=== PATIENT | male | born 1985 | race Caucasian/White ===

== ENCOUNTER 2017-03-24 05:54 | Day surgery (SDC) | payer OTHER ==
[2017-03-23 14:50] VITALS: BMI 23.7
--- NOTE | 2017-03-24 07:09 | HP ---
Admitting History and Physical - Admission Chief Complaint: depression History of Present Illness: patient is a 32 y/o male with a past medical history of depression. Patient presents for ECT, this will be his first ECT. Patient reports a history of depression for the past 16 years. Patient reports compliance with prescribed medications. However, he reports no improvement of depressive symptoms with prescribed medications. As a result, patient was recommended for ect. He does reports suicidal ideation, however, he denies any suicide plan. Patient denies any homicidal ideation, visual or auditory hallucination. Patient does report his last hospitalization for depression was [facility] at 16 years of age. History Source: Patient - Smoking History Smoking history: Never smoked Have you smoked in the past 12 months: No - Alcohol/Substance Use Hx Alcohol Use: Yes (RARELY) History of Substance Use: reports: Marijuana - Social History Usual Living Arrangement: Yes: With Parent ADL: Independent Occupation: land scaping History of Recent Travel: No Home Medications - Allergies Allergies/Adverse Reactions: Allergies Allergy/AdvReac Type Severity Reaction Status Date / Time No Known Drug Allergies Allergy Verified 03/23/17 14:26 - Home Medications Home Medications: Ambulatory Orders Brexpiprazole [Rexulti] 0.5 mg PO Q2D 03/23/17 Clonazepam [Klonopin] 1 mg PO HS 03/23/17 Escitalopram Oxalate [Lexapro -] 20 mg PO HS 03/23/17 Family Disease History - Family Disease History Family Disease History: Other: Father (depression), Mother (anxiety), Brother ( neuroblastoma ), Sister (depression and anxiety three sisters ) Review of Systems - Review of Systems Constitutional: reports: No Symptoms Eyes: reports: No Symptoms HENT: reports: No Symptoms Neck: reports: No Symptoms Cardiovascular: reports: No Symptoms Respiratory: reports: No Symptoms Gastrointestinal: reports: No Symptoms Genitourinary: reports: No Symptoms Musculoskeletal: reports: No Symptoms Integumentary: reports: No Symptoms Neurological: reports: No Symptoms Endocrine: reports: No Symptoms Hematology/Lymphatic: reports: No Symptoms Psychiatric: reports: Depression Physical Examination Vital Signs: Vital Signs Temperature 98.0 F 03/24/17 06:58 Pulse Rate 60 03/24/17 06:58 Respiratory Rate 18 03/24/17 06:58 Blood Pressure 116/64 03/24/17 06:58 O2 Sat by Pulse Oximetry (%) 100 03/24/17 06:58 Constitutional: Yes: Well Nourished, No Distress, Calm Eyes: Yes: WNL, Conjunctiva Clear, EOM Intact HENT: Yes: WNL, Atraumatic, Normocephalic Neck: Yes: WNL, Supple, Trachea Midline Cardiovascular: Yes: WNL, Regular Rate and Rhythm, S1, S2 Respiratory: Yes: WNL, Regular, CTA Bilaterally Gastrointestinal: Yes: WNL, Normal Bowel Sounds, Soft ...Rectal Exam: Yes: Deferred Renal/: Yes: WNL Musculoskeletal: Yes: WNL Extremities: Yes: WNL Edema: No Peripheral Pulses WNL: Yes Peripheral Pulses: Left Radial: 4+, Right Radial: 4+, Left Doralis Pedis: 3+, Right Dorsalis Pedis: 3+, Left Femoral: 3+, Right Femoral: 3+ Integumentary: Yes: WNL Neurological: Yes: WNL, Alert, Oriented ...Motor Strength: WNL Psychiatric: Yes: WNL, Alert, Oriented Labs: CBC WBC 5.7 K/mm3 (4.0-10.0) 03/24/17 06:20 RBC 4.68 M/mm3 (4.00-5.60) 03/24/17 06:20 Hgb 14.4 GM/dL (11.7-16.9) 03/24/17 06:20 Hct 42.4 % (35.4-49) 03/24/17 06:20 MCV 90.7 fl (80-96) 03/24/17 06:20 MCHC 33.9 g/dl (32.0-35.9) 03/24/17 06:20 RDW 13.0 % (11.9-15.9) 03/24/17 06:20 Plt Count 176 K/MM3 (134-434) 03/24/17 06:20 MPV 9.8 fl (7.5-11.1) 03/24/17 06:20 Neutrophils % 51.5 % (42.8-82.8) 03/24/17 06:20 Lymphocytes % 35.4 % (8-40) 03/24/17 06:20 Monocytes % 7.8 % (3.8-10.2) 03/24/17 06:20 Eosinophils % 4.7 % (0-4.5) H 03/24/17 06:20 Basophils % 0.6 % (0-2.0) 03/24/17 06:20 CMP Sodium 142 mmol/L (136-145) 03/24/17 06:20 Potassium 4.1 mmol/L (3.5-5.1) 03/24/17 06:20 Chloride 105 mmol/L (98-107) 03/24/17 06:20 Carbon Dioxide 30 mmol/L (21-32) 03/24/17 06:20 Anion Gap 7 (8-16) L 03/24/17 06:20 BUN 22 mg/dL (7-18) H 03/24/17 06:20 Creatinine 1.0 mg/dL (0.7-1.3) 03/24/17 06:20 Creat Clearance w eGFR > 60 (>60) 03/24/17 06:20 Random Glucose 89 mg/dL (74-106) 03/24/17 06:20 Calcium 8.9 mg/dL (8.5-10.1) 03/24/17 06:20 Total Bilirubin 0.5 mg/dL (0.2-1.0) 03/24/17 06:20 AST 22 U/L (15-37) 03/24/17 06:20 ALT 29 U/L (12-78) 03/24/17 06:20 Alkaline Phosphatase 119 U/L (45-117) H 03/24/17 06:20 Total Protein 7.1 g/dl (6.4-8.2) 03/24/17 06:20 Albumin 4.1 g/dl (3.4-5.0) 03/24/17 06:20 Imaging - Results EKG: Image Reviewed (sinsu bradycardia), Other Assessment/Plan patient is a 32 y/o male with a past medical history of depression that presents for ect labs and ekg reviewed informed consent, risks/benefits to be obtained by Dr Sams
[2017-03-24 07:18] LABS: MCH 30.7 pg (25.7-33.7); MCHC 33.9 g/dl (32.0-35.9); MEAN CELL VOLUME 90.7 fl (80-96); WHITE BLOOD COUNT 5.7 K/mm3 (4.0-10.0)
[2017-03-24 07:19] LABS: BASOPHIL 0.6 % (0-2.0); EOSINOPHIL 4.7 % (0-4.5); MEAN PLT VOLUME 9.8 fl (7.5-11.1); NEUTROPHILS 51.5 % (42.8-82.8); PLATELET COUNT 176 K/MM3 (134-434)
[2017-03-24 07:50] LABS: ALBUMIN 4.1 g/dl (3.4-5.0); ALK PHOS 119 U/L (45-117); ANION GAP 7 (8-16); BILIRUBIN,TOTAL 0.5 mg/dL (0.2-1.0); CALCIUM 8.9 mg/dL (8.5-10.1); CO2 30 mmol/L (21-32); COCKROFT - GAULT 105.1; GLUCOSE,RANDOM 89 mg/dL (74-106); SGOT/AST 22 U/L (15-37); SGPT/ALT 29 U/L (12-78); TOT PROT 7.1 g/dl (6.4-8.2)
[2017-03-24] MEDS ORDERED: KETAMINE HCL 500 MG/10 ML VIAL ONE (08:21)
[2017-03-24 09:07] VITALS: TEMP 98.2
[2017-03-24 09:41] VITALS: BP 133/72; PULSE 80
--- NOTE | 2017-03-24 16:53 | EKG ---
Test Reason : Blood Pressure : / mmHG Vent. Rate : 057 BPM Atrial Rate : 057 BPM P-R Int : 156 ms QRS Dur : 092 ms QT Int : 430 ms P-R-T Axes : 075 063 040 degrees QTc Int : 418 ms SINUS BRADYCARDIA POSSIBLE LEFT ATRIAL ENLARGEMENT BORDERLINE ECG NO PREVIOUS ECGS AVAILABLE Confirmed by KETAN MEDRANO MD ([id number] on 03/24/2017 4:53:25 PM Referred By: Francisco Sams Confirmed By:KETAN MEDRANO MD
== END 2017-03-24 10:20 | disposition home or self-care (01) ==
LOC: FECT 05:54
PROVIDERS: ATTEND Psychiatry & Neurology Psychiatry
PROC: GZB4ZZZ Other Electroconvulsive Therapy (ICD-10-PCS; principal; 2017-03-24 08:15)
DX: F33.2 Major depressive disorder, recurrent severe without psychotic features (principal)
CPT/HCPCS: 36415; 80053; 85025; 90870; 93005; 93010; 94760

== ENCOUNTER 2017-03-27 05:39 | Day surgery (SDC) | payer OTHER ==
[2017-03-27 06:18] VITALS: TEMP 97.6
[2017-03-27] MEDS ORDERED: KETAMINE HCL 500 MG/10 ML VIAL ONE (06:38)
[2017-03-27 08:05] VITALS: BP 120/76; PULSE 66
== END 2017-03-27 08:15 | disposition home or self-care (01) ==
LOC: FECT 05:39
PROVIDERS: ATTEND Psychiatry & Neurology Psychiatry
PROC: GZB4ZZZ Other Electroconvulsive Therapy (ICD-10-PCS; principal; 2017-03-27 07:45)
DX: F33.2 Major depressive disorder, recurrent severe without psychotic features (principal)
CPT/HCPCS: 90870; 94760

== ENCOUNTER 2017-03-29 05:35 | Day surgery (SDC) | payer OTHER ==
[2017-03-24 11:07] VITALS: BMI 23.7
[2017-03-29] MEDS ORDERED: KETAMINE HCL 500 MG/10 ML VIAL ONE (06:57)
[2017-03-29] MEDS ORDERED: ONDANSETRON 4 MG/2 ML VIAL IVPUSH PRN (07:04)
[2017-03-29] MEDS ORDERED: LACTATED RINGERS SOLUTION 1,000 ML IV SCH (07:15)
[2017-03-29 08:04] VITALS: TEMP 98.2
[2017-03-29 09:01] VITALS: BP 124/76; PULSE 62
== END 2017-03-29 08:40 | disposition home or self-care (01) ==
LOC: FECT 05:35
PROVIDERS: ATTEND Psychiatry & Neurology Psychiatry
PROC: GZB4ZZZ Other Electroconvulsive Therapy (ICD-10-PCS; principal; 2017-03-29 08:00)
DX: F33.2 Major depressive disorder, recurrent severe without psychotic features (principal)
CPT/HCPCS: 90870; 94760

== ENCOUNTER 2017-03-31 05:40 | Day surgery (SDC) | payer OTHER ==
[2017-03-31] MEDS ORDERED: KETAMINE HCL 500 MG/10 ML VIAL ONE (06:51)
[2017-03-31] MEDS ORDERED: ONDANSETRON 4 MG/2 ML VIAL IVPUSH PRN (08:01)
[2017-03-31] MEDS ORDERED: LACTATED RINGERS SOLUTION 1,000 ML IV SCH (08:15)
[2017-03-31 08:31] VITALS: TEMP 98
[2017-03-31 08:33] VITALS: BP 118/78; PULSE 77
== END 2017-03-31 08:30 | disposition home or self-care (01) ==
LOC: FECT 05:40
PROVIDERS: ATTEND Psychiatry & Neurology Psychiatry
PROC: GZB4ZZZ Other Electroconvulsive Therapy (ICD-10-PCS; principal; 2017-03-31 08:00)
DX: F33.2 Major depressive disorder, recurrent severe without psychotic features (principal)
CPT/HCPCS: 90870; 94760

== ENCOUNTER → 2017-04-03 | Day surgery (SDC) | payer OTHER ==
[2017-03-29 15:12] VITALS: BMI 23.7
[~2017-04-03] MED LIST: ACETAMINOPHEN/CAFFEINE/BUTALBITAL 1 TAB ONE; KETAMINE HCL 500 MG/10 ML VIAL ONE; LACTATED RINGERS SOLUTION 1,000 ML IV SCH; ONDANSETRON 4 MG/2 ML VIAL IVPUSH PRN; PROMETHAZINE HCL 25 MG/1 ML VIAL IVPUSH PRN
[2017-04-03 08:24] VITALS: TEMP 97.6
[2017-04-03 08:30] VITALS: BP 122/71; PULSE 66
== END | disposition home or self-care (01) ==
LOC: FECT 05:40
PROVIDERS: ATTEND Psychiatry & Neurology Psychiatry
PROC: GZB4ZZZ Other Electroconvulsive Therapy (ICD-10-PCS; principal; 2017-04-03 07:30)
DX: F33.2 Major depressive disorder, recurrent severe without psychotic features (principal)
CPT/HCPCS: 90870; 94760

== ENCOUNTER 2017-04-05 05:43 | Day surgery (SDC) | payer OTHER | END 2017-04-05 08:20 | disposition home or self-care (01) | LOC: FECT 05:43 | PROC: GZB4ZZZ Other Electroconvulsive Therapy (ICD-10-PCS; principal; 2017-04-05 07:30) | DX: F33.2 Major depressive disorder, recurrent severe without psychotic features (principal) | CPT/HCPCS: 90870; 94760 ==

== ENCOUNTER 2017-04-07 05:37 | Day surgery (SDC) | payer OTHER ==
[2017-04-04 11:17] VITALS: BMI 23.7
[2017-04-07] MEDS ORDERED: KETAMINE HCL 500 MG/10 ML VIAL ONE (07:45)
[2017-04-07 08:42] VITALS: TEMP 97.5
[2017-04-07 09:07] VITALS: BP 111/68; PULSE 72
== END 2017-04-07 09:15 | disposition home or self-care (01) ==
LOC: FECT 05:37
PROVIDERS: ATTEND Psychiatry & Neurology Psychiatry
PROC: GZB4ZZZ Other Electroconvulsive Therapy (ICD-10-PCS; principal; 2017-04-07 07:00)
DX: F33.2 Major depressive disorder, recurrent severe without psychotic features (principal)
CPT/HCPCS: 90870; 94760

== ENCOUNTER 2017-04-10 05:39 | Day surgery (SDC) | payer OTHER ==
[2017-04-04 15:25] VITALS: BMI 23.7
[2017-04-10 08:01] VITALS: PULSE 64; TEMP 97.7
[2017-04-10 08:54] VITALS: BP 121/72
[2017-04-10] MEDS ORDERED: LACTATED RINGERS SOLUTION 1,000 ML IV SCH (09:30)
== END 2017-04-10 08:43 | disposition home or self-care (01) ==
LOC: FECT 05:39
PROVIDERS: ATTEND Psychiatry & Neurology Psychiatry
PROC: GZB4ZZZ Other Electroconvulsive Therapy (ICD-10-PCS; principal; 2017-04-10 07:15)
DX: F33.2 Major depressive disorder, recurrent severe without psychotic features (principal)
CPT/HCPCS: 90870; 94760

== ENCOUNTER 2017-04-12 05:34 | Day surgery (SDC) | payer OTHER ==
[2017-04-05 12:07] VITALS: BMI 23.7
[2017-04-12] MEDS ORDERED: KETAMINE HCL 500 MG/10 ML VIAL ONE (06:49)
[2017-04-12 07:42] VITALS: TEMP 98.2
[2017-04-12 08:16] VITALS: BP 116/64; PULSE 64
== END 2017-04-12 08:17 | disposition home or self-care (01) ==
LOC: FECT 05:34
PROVIDERS: ATTEND Psychiatry & Neurology Psychiatry
PROC: GZB4ZZZ Other Electroconvulsive Therapy (ICD-10-PCS; principal; 2017-04-12 07:00)
DX: F33.2 Major depressive disorder, recurrent severe without psychotic features (principal)
CPT/HCPCS: 90870; 94760

== ENCOUNTER 2017-04-17 05:50 | Day surgery (SDC) | payer OTHER ==
[2017-04-05 12:12] VITALS: BMI 23.7
[2017-04-17] MEDS ORDERED: oxyCODONE HCL 5 MG TABLET PO PRN (07:34)
[2017-04-17] MEDS ORDERED: ONDANSETRON 4 MG/2 ML VIAL IVPUSH PRN (07:34)
[2017-04-17] MEDS ORDERED: LACTATED RINGERS SOLUTION 1,000 ML IV SCH (07:45)
[2017-04-17 07:59] VITALS: TEMP 97.9
[2017-04-17] MEDS ORDERED: ACETAMINOPHEN/CAFFEINE/BUTALBITAL 1 TAB PO ONE (08:45)
[2017-04-17 09:50] VITALS: BP 116/70; PULSE 72
== END 2017-04-17 09:40 | disposition home or self-care (01) ==
LOC: FECT 05:50
PROVIDERS: ATTEND Psychiatry & Neurology Psychiatry
PROC: GZB4ZZZ Other Electroconvulsive Therapy (ICD-10-PCS; principal; 2017-04-17 09:15)
DX: F33.2 Major depressive disorder, recurrent severe without psychotic features (principal)
CPT/HCPCS: 90870; 94760

== ENCOUNTER 2017-04-19 05:41 | Day surgery (SDC) | payer OTHER ==
[2017-04-19 06:45] VITALS: BMI 23.7
[2017-04-19] MEDS ORDERED: KETAMINE HCL 500 MG/10 ML VIAL ONE (07:29)
[2017-04-19] MEDS ORDERED: ACETAMINOPHEN/CAFFEINE/BUTALBITAL 1 TAB ONE (07:32)
[2017-04-19 08:54] VITALS: TEMP 97.8
[2017-04-19 08:55] VITALS: BP 113/67; PULSE 77
[2017-04-19] MEDS ORDERED: LACTATED RINGERS SOLUTION 1,000 ML IV SCH (09:15)
[2017-04-19] MEDS ORDERED: PROMETHAZINE HCL 25 MG/1 ML VIAL IVPUSH PRN (10:47)
[2017-04-19] MEDS ORDERED: ONDANSETRON 4 MG/2 ML VIAL IVPUSH PRN (10:47)
== END 2017-04-19 08:45 | disposition home or self-care (01) ==
LOC: FECT 05:41 → FASU 05:41
PROVIDERS: ATTEND Psychiatry & Neurology Psychiatry
PROC: GZB4ZZZ Other Electroconvulsive Therapy (ICD-10-PCS; principal; 2017-04-19 08:30)
DX: F33.2 Major depressive disorder, recurrent severe without psychotic features (principal)
CPT/HCPCS: 90870; 94760

== ENCOUNTER 2017-04-21 05:44 | Day surgery (SDC) | payer OTHER ==
[2017-04-17 16:01] VITALS: BMI 23.7
[2017-04-21] MEDS ORDERED: ONDANSETRON 4 MG/2 ML VIAL IVPUSH PRN (07:21)
[2017-04-21 08:20] VITALS: TEMP 98
[2017-04-21 08:41] VITALS: BP 115/82; PULSE 66
[2017-04-21] MEDS ORDERED: LACTATED RINGERS SOLUTION 1,000 ML IV SCH (13:00)
== END 2017-04-21 08:43 | disposition home or self-care (01) ==
LOC: FECT 05:44
PROVIDERS: ATTEND Psychiatry & Neurology Psychiatry
PROC: GZB4ZZZ Other Electroconvulsive Therapy (ICD-10-PCS; principal; 2017-04-21 08:15)
DX: F33.2 Major depressive disorder, recurrent severe without psychotic features (principal)
CPT/HCPCS: 90870; 94760

== ENCOUNTER 2017-04-26 05:43 | Day surgery (SDC) | payer OTHER ==
[2017-04-24 15:14] VITALS: BMI 23.7
[2017-04-26 07:02] VITALS: TEMP 97.8
--- NOTE | 2017-04-26 07:16 | HP ---
Admitting History and Physical - Admission History of Present Illness: patient is a 32 y/o male, with a past medical history of depression, that presents for ect, his last ect was 04/21/17. Patient reports feeling well, he does report minimal improvement in depressive symptoms since starting ect. He reports ongoing anxiety and is taking his prn klonopin with relief. patient does report rexuliti was discontinued since starting ect secondary to an improvement in symptoms. patient denies any recent illnesses or hospitalizations. patient denies any suicidal or homicidal ideation, visual or auditory hallucination. History Source: Patient, Family Member Limitations to Obtaining History: No Limitations - Smoking History Smoking history: Never smoked Have you smoked in the past 12 months: No - Alcohol/Substance Use Hx Alcohol Use: Yes (RARELY) History of Substance Use: reports: Marijuana - Social History ADL: Independent Occupation: land scaping History of Recent Travel: No Home Medications - Allergies Allergies/Adverse Reactions: Allergies Allergy/AdvReac Type Severity Reaction Status Date / Time No Known Drug Allergies Allergy Verified 04/17/17 15:51 - Home Medications Home Medications: Ambulatory Orders Clonazepam [Klonopin] 1 mg PO HS 03/23/17 Escitalopram Oxalate [Lexapro -] 20 mg PO HS 03/23/17 Melatonin 2.5 mg PO HS 03/29/17 Family Disease History - Family Disease History Family Disease History: Other: Father (depression), Mother (anxiety), Brother ( neuroblastoma ), Sister (depression and anxiety three sisters ) Review of Systems - Review of Systems Constitutional: reports: No Symptoms Eyes: reports: No Symptoms HENT: reports: No Symptoms Neck: reports: No Symptoms Cardiovascular: reports: No Symptoms Respiratory: reports: No Symptoms Gastrointestinal: reports: No Symptoms Genitourinary: reports: No Symptoms Musculoskeletal: reports: No Symptoms Integumentary: reports: No Symptoms Neurological: reports: No Symptoms Endocrine: reports: No Symptoms Hematology/Lymphatic: reports: No Symptoms Psychiatric: reports: Anxiety, Depression Physical Examination Vital Signs: Vital Signs Temperature 97.8 F 04/26/17 06:58 Pulse Rate 77 04/26/17 06:58 Respiratory Rate 18 04/26/17 06:58 Blood Pressure 119/75 04/26/17 06:58 O2 Sat by Pulse Oximetry (%) 98 04/26/17 06:58 Constitutional: Yes: Well Nourished, No Distress, Anxious Eyes: Yes: WNL, Conjunctiva Clear, EOM Intact HENT: Yes: WNL, Atraumatic, Normocephalic Neck: Yes: WNL, Supple, Trachea Midline Cardiovascular: Yes: WNL, Regular Rate and Rhythm, S1, S2 Respiratory: Yes: WNL, Regular, CTA Bilaterally Gastrointestinal: Yes: WNL, Normal Bowel Sounds, Soft ...Rectal Exam: Yes: Deferred Renal/: Yes: WNL Breast(s): Yes: WNL Musculoskeletal: Yes: WNL Extremities: Yes: WNL Edema: No Peripheral Pulses WNL: Yes Peripheral Pulses: Left Radial: 4+, Right Radial: 4+, Left Doralis Pedis: 3+, Right Dorsalis Pedis: 3+, Left Femoral: 3+, Right Femoral: 3+ Integumentary: Yes: WNL Neurological: Yes: WNL, Alert, Oriented ...Motor Strength: WNL Psychiatric: Yes: WNL, Alert, Oriented (reviewed 03/24/17) Imaging - Results EKG: Image Reviewed, Other (nsr no ischemic changes) Assessment/Plan patient is a 32 y/o male that presents for ect, he has received ect in the past and denies any adverse reaction to anesthesia labs and ekg reviewed pt is low risk for procedure informed consent, risks/benefits to be obtained by Dr Sams
[2017-04-26] MEDS ORDERED: ACETAMINOPHEN/CAFFEINE/BUTALBITAL 1 TAB ONE (08:13)
[2017-04-26 09:21] VITALS: BP 120/80; PULSE 69
== END 2017-04-26 09:30 | disposition home or self-care (01) ==
LOC: FECT 05:43
PROVIDERS: ATTEND Psychiatry & Neurology Psychiatry
PROC: GZB4ZZZ Other Electroconvulsive Therapy (ICD-10-PCS; principal; 2017-04-26 07:45)
DX: F33.2 Major depressive disorder, recurrent severe without psychotic features (principal)
CPT/HCPCS: 90870; 94760

== ENCOUNTER 2017-04-28 05:48 | Day surgery (SDC) | payer OTHER ==
[2017-04-26 15:04] VITALS: BMI 23.7
[2017-04-28] MEDS ORDERED: ACETAMINOPHEN/CAFFEINE/BUTALBITAL 1 TAB ONE (08:32)
[2017-04-28] MEDS ORDERED: ACETAMINOPHEN/CAFFEINE/BUTALBITAL 1 TAB PO ONE (09:00)
[2017-04-28] MEDS ORDERED: ONDANSETRON 4 MG/2 ML VIAL IVPUSH ONE (09:05)
[2017-04-28] MEDS ORDERED: ONDANSETRON 4 MG/2 ML VIAL ONE (09:09)
[2017-04-28 09:30] VITALS: TEMP 97.9
[2017-04-28] MEDS ORDERED: ONDANSETRON 4 MG/2 ML VIAL IVPUSH PRN (10:11)
[2017-04-28 10:23] VITALS: BP 136/92; PULSE 74
== END 2017-04-28 10:00 | disposition home or self-care (01) ==
LOC: FECT 05:48
PROVIDERS: ATTEND Psychiatry & Neurology Psychiatry
PROC: GZB4ZZZ Other Electroconvulsive Therapy (ICD-10-PCS; principal; 2017-04-28 08:15)
DX: F33.2 Major depressive disorder, recurrent severe without psychotic features (principal)
CPT/HCPCS: 90870; 94760

== ENCOUNTER 2017-05-01 05:47 | Day surgery (SDC) | payer OTHER ==
[2017-04-28 11:56] VITALS: BMI 23.7
[2017-05-01] MEDS ORDERED: ONDANSETRON 4 MG/2 ML VIAL IVPUSH PRN (06:57)
[2017-05-01] MEDS ORDERED: ACETAMINOPHEN/CAFFEINE/BUTALBITAL 1 TAB PO ONE (07:55)
[2017-05-01] MEDS ORDERED: ACETAMINOPHEN/CAFFEINE/BUTALBITAL 1 TAB ONE (07:56)
[2017-05-01 08:10] VITALS: TEMP 97.7
[2017-05-01 10:10] VITALS: BP 131/88; PULSE 76
== END 2017-05-01 08:50 | disposition home or self-care (01) ==
LOC: FECT 05:47
PROVIDERS: ATTEND Psychiatry & Neurology Psychiatry
PROC: GZB4ZZZ Other Electroconvulsive Therapy (ICD-10-PCS; principal; 2017-05-01 08:00)
DX: F33.2 Major depressive disorder, recurrent severe without psychotic features (principal)
CPT/HCPCS: 90870; 94760

== ENCOUNTER 2017-05-03 05:40 | Day surgery (SDC) | payer OTHER ==
[2017-05-02 12:41] VITALS: BMI 23.7
[2017-05-03 06:34] VITALS: TEMP 97.7
[2017-05-03] MEDS ORDERED: KETAMINE HCL 500 MG/10 ML VIAL ONE (06:53)
[2017-05-03] MEDS ORDERED: LACTATED RINGERS SOLUTION 1,000 ML IV SCH (07:15)
[2017-05-03 08:23] VITALS: BP 118/63; PULSE 73
== END 2017-05-03 08:40 | disposition home or self-care (01) ==
LOC: FECT 05:40
PROVIDERS: ATTEND Psychiatry & Neurology Psychiatry
PROC: GZB4ZZZ Other Electroconvulsive Therapy (ICD-10-PCS; principal; 2017-05-03 07:30)
DX: F33.2 Major depressive disorder, recurrent severe without psychotic features (principal)
CPT/HCPCS: 90870; 94760

== ENCOUNTER 2017-05-05 05:39 | Day surgery (SDC) | payer OTHER ==
[2017-05-04 10:19] VITALS: BMI 23.7
[2017-05-05] MEDS ORDERED: KETAMINE HCL 500 MG/10 ML VIAL ONE (06:54)
[2017-05-05 07:47] VITALS: BP 127/64; PULSE 73; TEMP 97.9
[2017-05-05] MEDS ORDERED: ACETAMINOPHEN 325 MG TABLET (FP) PO PRN (08:02)
[2017-05-05] MEDS ORDERED: ACETAMINOPHEN/CAFFEINE/BUTALBITAL 1 TAB ONE (08:06)
[2017-05-05] MEDS ORDERED: LACTATED RINGERS SOLUTION 1,000 ML IV SCH (08:15)
[2017-05-05] MEDS ORDERED: ONDANSETRON 4 MG/2 ML VIAL IVPUSH PRN (08:45)
== END 2017-05-05 08:25 | disposition home or self-care (01) ==
LOC: FECT 05:39
PROVIDERS: ATTEND Psychiatry & Neurology Psychiatry
PROC: GZB4ZZZ Other Electroconvulsive Therapy (ICD-10-PCS; principal; 2017-05-05 07:15)
DX: F33.2 Major depressive disorder, recurrent severe without psychotic features (principal)
CPT/HCPCS: 90870; 94760

== ENCOUNTER 2017-05-09 05:48 | Day surgery (SDC) | payer OTHER ==
[2017-05-04 10:24] VITALS: BMI 23.7
[2017-05-09 06:41] VITALS: TEMP 97.6
[2017-05-09] MEDS ORDERED: KETAMINE HCL 500 MG/10 ML VIAL ONE (07:57)
[2017-05-09] MEDS ORDERED: LACTATED RINGERS SOLUTION 1,000 ML IV SCH (08:15)
[2017-05-09 09:36] VITALS: BP 122/82; PULSE 66
== END 2017-05-09 09:20 | disposition home or self-care (01) ==
LOC: FECT 05:48
PROVIDERS: ATTEND Psychiatry & Neurology Psychiatry
PROC: GZB4ZZZ Other Electroconvulsive Therapy (ICD-10-PCS; principal; 2017-05-09 08:15)
DX: F33.2 Major depressive disorder, recurrent severe without psychotic features (principal)
CPT/HCPCS: 90870; 94760

== ENCOUNTER 2017-05-16 05:41 | Day surgery (SDC) | payer OTHER ==
[2017-05-10 10:48] VITALS: BMI 23.7
[2017-05-16 06:13] VITALS: TEMP 97.8
[2017-05-16 08:21] VITALS: BP 118/71; PULSE 73
== END 2017-05-16 08:25 | disposition home or self-care (01) ==
LOC: FECT 05:41
PROVIDERS: ATTEND Psychiatry & Neurology Psychiatry
PROC: GZB4ZZZ Other Electroconvulsive Therapy (ICD-10-PCS; principal; 2017-05-16 08:45)
DX: F33.2 Major depressive disorder, recurrent severe without psychotic features (principal)
CPT/HCPCS: 90870; 94760